=== PATIENT | male | born 1985 | race Caucasian/White ===

== ENCOUNTER 2024-01-16 20:54 | Emergency (ER) | payer OTHER, SELFPAY ==
[2024-01-16 20:59] VITALS: BP 141/98
[2024-01-16 21:17] LABS: % Basophils 0.4 % (0-2); % Eosinophils 1.8 % (0-6); % Immature Granulocytes 0.3 % (0-0.5); % Lymphocytes 22.3 % (20.5-51.1); % Monocytes 5.6 % (1.7-9.3); % Neutrophils 69.6 % (42.2-75.2); Absolute Eosinophils 0.1 10^3/uL (0-0.7); Absolute Lymphocytes 1.6 10^3/uL (1.2-3.4); Absolute Monocytes 0.4 10^3/uL (0.1-0.6); Absolute Neutrophils 5.1 10^3/uL (1.4-6.5); Hematocrit 40.6 % (39.0-52.0); Hemoglobin 14.5 g/dL (13.0-18.0); Mean Corp Hgb Conc. 35.7 g/dL (33.0-37.0); Mean Corpuscular Hgb 30.1 pg (27.0-31.0); Mean Corpuscular Volume 84.4 fL (80.0-94.0); Mean Platelet Volume 10.9 fL (7.4-10.4); Nucleated Red Blood Cells % 0 % (-); Platelet Count 258 10^3/uL (130-400); Red Blood Cell Count 4.81 10^6/uL (4.70-6.10); Red Cell Dist. Width 12.3 % (11.5-14.5); White Blood Cell Count 7.3 10^3/uL (4.8-10.8)
[2024-01-16 21:39] LABS: ALT (SGPT) 43 U/L (0-50); AST (SGOT) 30 U/L (17-59); Albumin 4.7 g/dl (3.5-5.0); Alkaline Phosphatase 87 U/L (38-126); Blood Urea Nitrogen 25 mg/dl (9-20); Calcium 9.9 mg/dl (8.4-10.2); Carbon Dioxide 28 mmol/L (22-30); Chloride 103 mmol/L (98-107); Glucose 136 mg/dl (70-99); Potassium 4.1 mmol/L (3.5-5.1); Sodium 140 mmol/L (135-145); Total Bilirubin 0.2 mg/dl (0.2-1.3); eGFR > 60.00
[2024-01-16 21:41] LABS: Troponin I < 0.012 ng/ml
[2024-01-16 22:36] VITALS: BMI 26.1
--- NOTE | 2024-01-16 22:41 | ED.GENMED ---
History of Present Illness
General
Chief Complaint: Heart Rate Problem
Source: patient
Exam Limitations: none
Time Seen by Provider: 01/16/24 21:38
Nursing documentation reviewed up to this point in time: agreed with
History of Present Illness
History of Present Illness:
38 Y/O m WITH H/O SMOKING, SUBSTANCE ABUSE (former opiate on suboxone, former alcohol, meth, marijuana)
here for palpitations off and on for a few days
aprpeciate triage saying just a few hours but ppt tells me it has been days
apparently many months ago pt says he had episode where his heart was racing and he passed out and he was told he had afib
he was supposed to be admitted but he left AMA
pt did f/u with a director of marketing analytics and got a holter monitor
he wore it for 2 weeks and was suppsoed to turn it in but never did
he has it today and was wondering if we can read it
he has had a llittle chest discomfort as well with it
tp has not had any SOB, fever, chills, cough, vomiting
he has not passed out
he asked if we could test him for naloxone to know if someone is secretly trying to put him through withdrawal
Past History
Past History
ED Past Medical History: HTN, Other (Substance abuse, heroin abuse) and Other (kidney stones)
ED Past Surgical History: Other (Ulcer that ruptured with surgery)
Social History
Tobacco: Smoker
Alcohol: None
Drug: Cocaine, Narcotics and IVDA
Personal: Single
Living: alone
Employment: Not employed
Family History
Family History: Other (Noncontributory)
Review of Systems
Review of Systems
Allergies reviewed?: Yes
All Other Systems: Not applicable
Phy Exam
Physical Exam
Physical Exam:
GENERAL: Alert , in no apparent distress,
EYE: pupils equal and reactive
NECK: Supple
ENT: o/p clr, mmm.
CARDIAC: Regular rate and rhythm .no murmur, no tachycardia
LUNGS: Clear breath sounds bilaterally, no acute respiratory distress, no wheezes/rales/rhonchi
ABDOMEN: Soft, without focal tenderness, no r/g, no cvat, normal bowel sounds
NEUROLOGICAL: Alert and oriented, no focal neuro deficits
SKIN: Warm and dry, skin intact.
MUSCULOSKELETAL: No edema, well perfused. neg pb's sign
PSYCH: Normal and appropriate interaction.
Course
Orders/Labs/Results
Orders:
Orders
01/16/24 20:55
ECG [Electrocardiogram (*1)] Urgent
Reason for Study: Palpitations
EKG- Treatment ONCE
01/16/24 21:12
Complete Blood Count/With Diff Urgent
Comprehensive Metabolic Panel Urgent
Troponin I Urgent
01/16/24 22:38
Crisis Consult Urgent
Reason for Consult: ANXIETY
Abnormal Lab Results
01/16/24
21:12
MPV 10.9 H fL
(7.4-10.4)
BUN 25 H mg/dl
(9-20)
Glucose 136 H mg/dl
(70-99)
01/16/24 21:12
01/16/24 21:12
Vital Signs
Initial and Last Documented VS:
Initial Vital Signs
Temp Pulse Resp BP Pulse Ox
98.1 F 94 16 141/98 99
01/16/24 20:59 01/16/24 20:59 01/16/24 20:59 01/16/24 20:59 01/16/24 20:59
Last Documented Vital Signs
Temp Pulse Resp BP Pulse Ox
98.1 F 71 16 137/94 98
01/16/24 20:59 01/16/24 23:39 01/16/24 23:39 01/16/24 23:39 01/16/24 23:39
MDM/Problems Addressed
Differential Diagnosis Includes:
parlpitations, tachycardia, drug abuse, dehdryation
MDM/Problems Addressed:
38 y/o M
polysubstance abuse
palpitations for a few days off and on
has had hh/o irregular rhythm, sys it was afib but never anticoagulated
was wearing monitor but never turned it in
seems to be poor historian/unreliable
here he has normal sindus rhythm, no ectopy, no afib
wlel aeparing
no st elevtion/dpression
trop neg
mild dehyrated, drinking oral fluids
no PE RF, not tachycardic and PERC neg
d/c home
pt asked to speak to crisis for anxiety.
no si, no hi
*Critical Care Note
Total Time (30-74mins, 75-104mins- exclusive of procedures): Not Applicable
ED Attending Note
-
Portions of this chart may have been created with voice recognition software.� Occasional wrong word or��sound alike� substitutions may have occurred due to the inherent limitations of voice recognition software.
Discharge Plan
Departure
Patient Disposition: Home (Routine Discharge)
Date of Disposition: 01/16/24
Time of Disposition: 23:19
Patient with high blood pressure during this ER visit?: No
Discharge Problem:
Palpitations
Instructions: Palpitations (DC)
Prescriptions:
No Action
naloxone [Narcan] 4 MG spray,non-aerosol
4 mg intranasal DIRECTED Qty: 2 0RF
penicillin V potassium 250 MG tablet
250 mg PO TID
Patient Comments:
Pt on PCN for wound to right cheek
Referrals:
Rocio Bajwa NP [Family Provider] -
Activity Restrictions/Additional Instructions:
YOU HAD NO SIGN OF ATRIAL FIBRILLATION TODAY
YOU MAY BE MILDLY DEHYDRATED
PLEASE DRINK MORE FLUIDS
AVOID DRUGS LIKE METH AND MARIJUANA THAT CAN EEVATE YOUR HEART RATE
FOLLOW UP WITH YOUR FAMILY DOCTOR AND TURN IN THE [employer]
RETURN FOR AN [facility].
Interventions
Interventions:
*Risk Screen - Suicide Last Done: 01/16/24 23:30
*General Assessment Last Done: 01/16/24 23:36
*Neglect/Abuse Screening Last Done: 01/16/24 23:30
ED- Fall Risk Assessment Last Done: 01/16/24 22:37
*ED COVID-19 Vaccine History Last Done: 01/16/24 23:35
*Nursing Disposition Last Done: 01/16/24 23:39
ED- Cardiac Assessment Last Done: 01/16/24 22:37
ED- Pulmonary Assessment Last Done: 01/16/24 22:37
Discharge Date and Time
Discharge Date/Time: 01/16/24 23:39
Print Language: SAUDI ARABIAN
[2024-01-16 23:33] VITALS: BP 137/94
[2024-01-16 23:39] VITALS: BP 137/94
== END 2024-01-16 23:39 | disposition home or self-care (01) ==
LOC: EMR 20:54
PROVIDERS: Emergency Medicine; EMERGENCY PHYSICIAN Student in an Organized Health Care Education/Training Program; FAMILY PHYSICIAN Nurse Practitioner Adult Health
DX: R00.2 Palpitations (principal); I48.91 Unspecified atrial fibrillation; F19.10 Other psychoactive substance abuse, uncomplicated; F11.10 Opioid abuse, uncomplicated; F17.200 Nicotine dependence, unspecified, uncomplicated; F41.9 Anxiety disorder, unspecified; I10 Essential (primary) hypertension; Z87.442 Personal history of urinary calculi
CPT/HCPCS: 99283; 80053; 84484; 85025; 93005